=== PATIENT | female | born 1990 | race American Indian/Alaskan Native ===

== ENCOUNTER 2016-09-16 20:33 | Emergency (ER) | payer OTHER ==
[2016-09-16 20:34] VITALS: BMI 36.8
[2016-09-16 20:56] VITALS: RESP 16; O2SAT 97
[2016-09-16 23:57] VITALS: BP 117/72; PULSE 84; TEMP 98
== END 2016-09-16 23:00 | disposition home or self-care (01) ==
LOC: C.ER 20:33
DX: R10.32 Left lower quadrant pain (principal)